=== PATIENT | male | born 1970 | race Caucasian/White ===

== ENCOUNTER 2017-10-01 12:20 | Emergency (ER) | payer SELFPAY ==
--- NOTE | 2017-10-01 12:35 | NUR ---
SEEN AMBULATING OUT OF THE ER, NO ANSWER FOR TRIAGE
== END 2017-10-01 12:35 | disposition left against medical advice (07) ==
LOC: MED 12:20
DX: Z53.21 Procedure and treatment not carried out due to patient leaving prior to being seen by health care provider (principal)